=== PATIENT | male | born 1975 | race Two or more races ===

== ENCOUNTER 2024-08-18 17:59 | Emergency (ER) | payer OTHER ==
[~2024-08-18] VITALS: Ht 172.7 cm; Wt 108.0 kg
[2024-08-18 18:46] VITALS: BP 161/93; PULSE 75; RESP 18; TEMP 98; O2SAT 96
[2024-08-18] MEDS ORDERED: ACET500T58 PO (19:42)
[2024-08-18] MEDS ORDERED: CEPH500C PO (19:42)
--- NOTE | 2024-08-18 19:43 | ED.PDOC ---
HPI (NEURO) HPI Comments 48-year-old male presents to ER with complaints of facial injury x1 day. Patient reports that he accidentally hit the right side of his face against metal rods while he went to bend over and pick something up out of his truck today and has since been experiencing 7/10 right-sided facial pain. Denies LOC. Denies use of medications for current symptoms. Patient presents to ER ambulatory on arrival, alert and oriented x4, with steady gait, in no distress with mild abrasions noted to right side of face/right side of forehead. Denies headache, neck pain, nausea/vomiting, numbness/tingling, vision changes, confusion, dizziness or any further symptoms/complaints Chief Complaint: Head Injury Time Seen by MD: 18:13 Primary Care Provider: UNKNOWN Reviewed Notes: Nurses Notes, Medications, Allergies Information Source: Friend Mode of Arrival: Ambulatory Past Medical History PAST MEDICAL HISTORY: Denies Surgical History: Denies all surgeries Family History Family History: Unknown Social History Smoker: Non-Smoker Alcohol: Denies ETOH Use Drugs: Denies Drug Use Lives In: Home Constitutional: denies: chills, diaphoresis, fatigue, fever, malaise, sweats, weakness, others EENTM: denies: blurred vision, double vision, ear bleeding, ear discharge, ear drainage, ear pain, ear ringing, eye pain, eye redness, hearing loss, mouth pain, mouth swelling, nasal discharge, nose bleeding, nose congestion, nose pain, photophobia, tearing, throat pain, throat swelling, voice changes, others Respiratory: denies: cough, hemoptysis, orthopnea, SOB at rest, shortness of breath, SOB with excertion, stridor, wheezing, others Cardiovascular: denies: chest pain, dizzy spells, diaphoresis, Dyspnea on exertion, edema, irregular heart beat, left arm pain, lightheadedness, palpitations, PND, syncope, others Gastrointestinal: denies: abdomen distended, abdominal pain, blood streaked bowels, constipated, diarrhea, dysphagia, difficulty swallowing, hematemesis, melena, nausea, poor appetite, poor fluid intake, rectal bleeding, rectal pain, vomiting, others Genitourinary: denies: burning, dysuria, flank pain, frequency, hematuria, incontinence, penile discharge, penile sore, pain, testicle pain, testicle swelling, urgency, others Neurological: reports: others (As stated in HPI) Musculoskeletal: denies: back pain, gout, joint pain, joint swelling, muscle pain, muscle stiffness, neck pain, others Integumetry: reports: others (As stated in HPI) Allergic/Immunocompromised: denies: Difficulty Healing, Frequent Infections, Hives, Itching, others Hematologic/Lymphatic: denies: anemia, blood clots, easy bleeding, easy bruising, swollen glands, others Endocrine: denies: excessive hunger, excessive sweating, excessive thirst, excessive urination, flushing, intolerance to cold, intolerance to heat, unexplained weight gain, unexplained weight loss, others Psychiatric: denies: anxiety, bipolar disorder, depression, hopeless, panic disorder, schizophrenia, sleepless, suicidal, others Physical Exam General Appearance: No Apparent Distress HEENT: Normal ENT Inspection, PERRL/EOMI (No raccoon eyes noted bilaterally), Pharynx Normal, TMs Normal (No hemotympanum noted bilaterally), Other (Mild abrasions noted to right side of face/right side of forehead. No bleeding/lacerations/further skin changes noted) Neck: Full Range of Motion, Non-Tender, Normal Respiratory: Chest Non-Tender, Lungs Clear, No Accessory Muscle Use, No Respiratory Distress, Normal Breath Sounds Cardiovascular: No Murmur, No Gallop, Regular Rate/Rhythm Breast Exam: Deferred Gastrointestinal: NOT DONE Genitalia: Deferred Pelvic: Deferred Rectal: Deferred Extremities: Normal capillary refill, Normal range of motion Neurologic: Alert, environmental assistant II-XII nml as Tested, No Motor Deficits, Normal Affect, Normal Mood, No Sensory Deficits Cerebellar Function: Normal Reflexes: Normal Skin: Dry, Warm Lymphatic: No Adenopathy Was a procedure done? Was a procedure done?: No Sedation Sedation?: No Differential Diagnosis (SZ) Headache: Subarachnoid Hemorrhage, Subdural Hemorrhage, Other (Fracture, laceration) X-Ray, Labs, Meds, VS Vital Signs Date Time Temp Pulse Resp B/P (MAP) Pulse Ox O2 Delivery O2 Flow Rate FiO2 08/18/24 18:46 75 18 96 Room Air 08/18/24 18:46 98.0 75 18 161/93 (115) 96 98.0 08/18/24 18:13 98.0 75 18 161/93 (115) 96 Current Medications Medications (Trade) Dose Ordered Sig/Xiomara Route Start Time Stop Time Status Last Admin Acetaminophen (Tylenol Tablet) 650 mg ONCE ONCE PO 08/18/24 19:45 08/18/24 19:46 DC 08/18/24 19:49 Diphtheria/ Tetanus/Acell Pertussis (Boostrix T-Dap) 0.5 ml ONCE ONCE IM 08/18/24 19:45 08/18/24 19:46 DC 08/18/24 19:48 Tdap 0.5 mL IM ordered Tylenol 650 mg PO ordered Wound care/cleaning discussed and advised Advised to follow up with PCP in 1-2 days Patient alert and oriented x4 prior to discharge. Patient verbalized understanding and agreeable with current plan of care Advised to return to ER immediately if symptoms worsen Time of 1ST Reevaluation: 19:12 Reevaluation 1ST: N/A Patient Education/Counseling: Diagnosis, Treatment, Prognosis, Need For Follow Up Family Education/Counseling: No Family Present Departure 1 Departure Time of Disposition: 19:34 Impression: Primary Impression: Facial injury Qualified Codes: S09.93XA - Unspecified injury of face, initial encounter Additional Impression: Abrasion of face Qualified Codes: S00.81XA - Abrasion of other part of head, initial encounter Disposition: 01 HOME / SELF CARE / HOMELESS Condition: Stable e-Prescriptions Cephalexin Monohydrate (Cephalexin) 500 Mg Cap 1 CAP PO BID for 7 Days, #14 CAP 0 Refills Prov: ANAYELI AYERS 08/18/24 Acetaminophen (Acetaminophen) 500 Mg Tab 500 MG PO Q4HPRN, #30 TAB 0 Refills Prov: ANAYELI AYERS 08/18/24 Discharged With: Self Critical Care Note Critical Care Time?: No Stability Stability form required: No Heart Score Heart Score: Heart Score Response (Comments) Value History N/A 0 EKG N/A 0 Age N/A 0 Risk Factors N/A 0 Troponin N/A 0 Total 0 ANAYELI AYERS Aug 18, 2024 19:43
[2024-08-18] MEDS: TETANUS-DIPTH-ACEL PERTUSSIS 0.5ML SYR Tdap IM ONE (19:48)
[2024-08-18] MEDS: ACETAMINOPHEN 325 MG TAB PO ONE (19:49)
== END 2024-08-18 21:35 | disposition home or self-care (01) ==
LOC: ER 17:59
DX: S00.81XA Abrasion of other part of head, initial encounter (principal); W22.8XXA Striking against or struck by other objects, initial encounter; Y93.89 Activity, other specified; Y92.89 Other specified places as the place of occurrence of the external cause; Y99.8 Other external cause status
CPT/HCPCS: 90471; 90715